=== PATIENT | female | born 1975 | race Caucasian/White ===

== ENCOUNTER → 2020-07-05 10:19 | Outpatient (CLI) | payer OTHER, SELFPAY ==
[2020-07-05 11:00] LABS: Alanine Aminotransferase 10 U/L (12-78); Albumin Level 3.9 g/dl (3.5-5.0); Alkaline Phosphatase 88 U/L (38-126); Aspartate Amino Transferase 18 U/L (14-36); Bilirubin,Direct 0.2 mg/dl (0.0-0.4); Bilirubin,Indirect 0.3 mg/dL (0.0-0.9); Bilirubin,Total 0.5 mg/dl (0.2-1.3); Bilirubin,Unconjugated 0.3 mg/dL (0.0-1.1); Chol/HDL Ratio 3.4 (1-3.5); Cholesterol 131 mg/dl (140-200); HDL Cholesterol 38 mg/dl (40-60); Total Protein,Serum 7.1 g/dl (6.3-8.2); Triglycerides 115 mg/dl (30-150); VLDL Cholesterol 23 mg/dL (0-40)
[2020-07-05 11:11] LABS: Direct LDL Cholesterol 72.26 mg/dL (100-129)
== END ==
PROVIDERS: Visit Provider Internal Medicine
DX: E78.5 Hyperlipidemia, unspecified (principal)
CPT/HCPCS: 36415; 80061; 80076

== ENCOUNTER 2023-06-25 09:30 | Outpatient (CLI) | payer OTHER, SELFPAY ==
[2023-06-25 10:19] LABS: Basophils # 0.1 K/mm3 (0-0.2); Basophils % 0.7 % (0.1-2.0); Eosinophils # 0.2 K/mm3 (0.0-0.4); Eosinophils % 1.9 % (0.1-12.0); Hemoglobin 13.7 g/dL (12.2-16.2); Lymphocytes # 2.7 K/mm3 (0.7-4.5); Mean Corpuscular HGB Conc 33.3 g/dL (31.8-35.4); Mean Corpuscular Hemoglobin 29.6 pg (27.0-31.2); Mean Corpuscular Volume 88.8 fl (81-99); Mean Platelet Volume 8.9 fl (7.4-10.4); Monocytes # 0.4 K/mm3 (0.1-1.0); Monocytes % 3.8 % (1.7-9.3); Neutrophils % 64.5 % (37.0-80.0); Platelet Count 337 K/mm3 (142-424); Red Blood Count 4.62 M/mm3 (4.20-5.40); Red Cell Distribution Width 13.5 % (11.5-17.5); White Blood Count 9.3 K/mm3 (4.8-10.8)
[2023-06-25 11:46] LABS: Free T4 (Free Thyroxine) 0.95 ng/dl (0.78-2.19)
[2023-06-25 11:51] LABS: Chloride 101 mmol/L (98-107); Sodium 140 mmol/L (136-145)
[2023-06-25 11:52] LABS: Potassium 3.8 mmoL/L (3.5-5.1)
[2023-06-25 11:54] LABS: Alanine Aminotransferase 14 U/L (12-78); Albumin Level 3.9 g/dl (3.5-5.0); Alkaline Phosphatase 115 U/L (38-126); Anion Gap 13.8 mEq/L (5-15); Aspartate Amino Transferase 23 U/L (14-36); Bilirubin,Direct 0.1 mg/dl (0.0-0.4); Bilirubin,Indirect 0.3 mg/dL (0.0-0.9); Bilirubin,Total 0.4 mg/dl (0.2-1.3); Bilirubin,Unconjugated 0.4 mg/dL (0.0-1.1); Blood Urea Nitrogen 11 mg/dl (7-17); Calcium 8.8 mg/dl (8.4-10.2); Carbon Dioxide 29 mmol/L (22.0-30.0); Cholesterol 167 mg/dl (140-200); Estimated Glomerular Filt Rate 67 ml/min (>60); GFR (African American) 81 ML/MIN (>60); Glucose 111 mg/dl (74-100); Magnesium 1.8 mg/dl (1.6-2.3); Triglycerides 165 mg/dl (30-150); VLDL Cholesterol 33 mg/dL (0-40)
[2023-06-25 11:55] LABS: Chol/HDL Ratio 3.6 (1-3.5); HDL Cholesterol 47 mg/dl (40-60)
[2023-06-25 12:06] LABS: Direct LDL Cholesterol 86.95 mg/dL (100-129)
[2023-06-25 12:24] LABS: Thyroid Stimulating Hormone 4.14 uIU/mL (0.465-4.68)
[2023-06-25 12:48] LABS: Hemoglobin A1C 5.7 % (4.0-6.0)
== END 2023-06-25 23:59 ==
LOC: LAB 09:32
PROVIDERS: PCP Physician Assistant; Visit Provider Physician Assistant
DX: E78.5 Hyperlipidemia, unspecified (principal); I11.9 Hypertensive heart disease without heart failure; R05.9 Cough, unspecified; Z82.49 Family history of ischemic heart disease and other diseases of the circulatory system; Z13.1 Encounter for screening for diabetes mellitus
CPT/HCPCS: 36415; 80048; 80061; 80076; 83036; 83735; 84439; 84443; 85025